=== PATIENT | male | born 1940 | race Caucasian/White ===

== ENCOUNTER → 2018-08-27 | Outpatient (CLI) | payer OTHER | LOC: FIMAGING 14:17 | PROVIDERS: ATTEND Orthopaedic Surgery | DX: Z01.818 Encounter for other preprocedural examination (principal); M16.11 Unilateral primary osteoarthritis, right hip ==

== ENCOUNTER 2018-09-19 05:33 | Inpatient (IN) | payer OTHER ==
[2018-09-19] MEDS ORDERED: TRANEXAMIC ACID 2,000 MG in NS 100 ML IV ONE (06:00)
[2018-09-19] MEDS ORDERED: TRANEXAMIC ACID 1,000 MG in NS 100 ML IV ONE (06:00)
[2018-09-19] MEDS ORDERED: POVIDONE-IODINE 20 ML in SODIUM CL IRRIG SOLUTION 500 ML IRR ONE (06:00)
[2018-09-19] MEDS ORDERED: ROPIVACAINE 0.2% 80 MG, EPINEPHrine 0.2 MG, KETOROLAC TROMETHAMINE 30 MG in SYRINGE 0 ML IU ONE (06:00)
[2018-09-19] MEDS ORDERED: FAMOTIDINE 20 MG TAB PO ONE (06:11)
[2018-09-19] MEDS ORDERED: ceFAZolin 2 GM/DEXTROSE 100 ML IV ONE (06:11)
[2018-09-19] MEDS ORDERED: ACETAMINOPHEN 325 MG TAB PO ONE (06:11)
[2018-09-19] MEDS ORDERED: DEXAMETHASONE 4 MG/ML VIAL IVP ONE (06:11)
[2018-09-19] MEDS ORDERED: LIDOCAINE 1% 2 ML INJ ID PRN (06:12)
[2018-09-19] MEDS ORDERED: LR 1,000 ML IV ONE (06:12)
[2018-09-19] MEDS ORDERED: BUPIVACAINE/EPI 0.5% 30 ML SDV ONE (06:49)
[2018-09-19 06:57] LABS: PLATELET COUNT 199 10^3/uL (150-400)
[2018-09-19] MEDS ORDERED: MIDAZOLAM 2 MG/2 ML VIAL IVP ONE (07:03)
--- NOTE | 2018-09-19 07:03 | PDANEPAE ---
ANE Past Medical History - Cardiovascular History Hx Hypertension: Yes Hx Arrhythmias: No Hx Chest Pain: No Hx Coronary Artery / Peripheral Vascular Disease: No Hx CHF / Valvular Disease: No Hx Palpitations: No Cardiovascular History Comment: PVC's - Pulmonary History Hx COPD: No Hx Asthma/Reactive Airway Disease: Yes Hx Recent Upper Respiratory Infection: No Hx Oxygen in Use at Home: No Hx Sleep Apnea: Yes Sleep Apnea Screening Result - Last Documented: Positive Pulmonary History Comment: exercise induced asthma - Neurologic History Hx Cerebrovascular Accident: No Hx Seizures: No Hx Dementia: No - Endocrine History Hx Diabetes: No Hypothyroid: No Hyperthyroid: No Obesity: yes, mild - Renal History Hx Renal Disorders: No - Liver History Hx Hepatic Disorders: No - Neurological & Psychiatric Hx Hx Neurological and Psychiatric Disorders: No - Cancer History Hx Cancer: Yes Cancer History Comment: basal cell skin cancer - Congenital Disorder History Hx Congenital Disorders: No - GI History GERD: no Hx Gastrointestinal Disorders: No - Other Health History Other Health History: cataracts. missing teeth upper - Chronic Pain History Chronic Pain: Yes (hands) - Surgical History Prior Surgeries: CARDIAC CATH 2017. KNEE SCOPE 2007. APPENDECTOMY 1945 ANE Review of Systems Review of Systems: - Exercise capacity Exercise capacity: limited by disability METS (RN): 4 METS ANE Patient History - Allergies Allergies/Adverse Reactions: etanercept [From Enbrel] Allergy (Verified 09/19/18 06:23) Anaphylaxis - Home Medications Home Medications: Acetamn/Diphenhydramine 500/25 [Tylenol PM (*)] 1 each PO HS 08/30/18 [Last Taken 09/17/18] Ergocalciferol [Vitamin D2 (*)] 50,000 unit PO Q14D 08/30/18 [Last Taken ] Hydrochlorothiazide [HCTZ (*)] 25 mg PO DAILY 08/30/18 [Last Taken 09/18/18 12: 00] Multivitamins [Multivitamin (*)] 1 each PO DAILY 08/30/18 [Last Taken 09/18/18 12:00] Quinapril HCl 40 mg PO DAILY 08/30/18 [Last Taken 09/18/18 12:00] Tamsulosin HCl [Flomax 0.4 MG (*)] 0.4 mg PO BID 08/30/18 [Last Taken 09/18/18 23:55] traMADol [Ultram 50 mg (*)] 50 mg PO Q4 PRN 08/30/18 [Last Taken 09/17/18] Xeljanz 09/05/18 [Last Taken 09/11/18] - NPO status NPO Since - Liquids (Date): 09/19/18 NPO Since - Liquids (Time): 01:00 NPO Since - Solids (Date): 09/18/18 NPO Since - Solids (Time): 21:00 - Anes Hx Anes Hx: no prior problems - Smoking Hx Smoking Status: Former smoker Marijuana use: No - Alcohol Use Alcohol Use: Occasionally - Family Anes Hx Family Anes Hx: neg - N/A Family Hx Anesthesia Complications: NONE ANE Labs/Vital Signs - Labs Result Diagrams: 09/19/18 06:45 09/19/18 06:45 - Vital Signs Blood Pressure: 137/71 Heart Rate: 86 Respiratory Rate: 16 O2 Sat (%): 92 Height: 185.42 cm Weight: 111.13 kg ANE Physical Exam - Airway Neck exam: decreased ROM Mallampati Score: Class 2 Mouth exam: normal dental/mouth exam - Pulmonary Pulmonary: no respiratory distress, no rales or rhonchi, clear to auscultation - Cardiovascular Cardiovascular: regular rate and rhythym, no murmur, rub, or gallop - ASA Status ASA Status: II ANE Anesthesia Plan Anesthesia Plan: MAC, spinal Total IV Anesthesia: No
[2018-09-19] MEDS ORDERED: MIDAZOLAM 2 MG/2 ML VIAL ONE (07:05)
--- NOTE | 2018-09-19 07:05 | PDHPUP ---
History & Physical Update H&P update statement: This history and physical update is based on an assessment of the patient which was completed after admission or registration (within 24 hours), but prior to the surgery/procedure. H&P update: H&P reviewed & patient examined, no change in patient's condition since H&P completed
[2018-09-19] MEDS ORDERED: METOCLOPRAMIDE 10 MG/2 ML VIAL ONE ×2 (07:09)
[2018-09-19] MEDS ORDERED: fentaNYL 100 MCG/2 ML INJ ONE (07:09)
[2018-09-19] MEDS ORDERED: PROPOFOL/EMULSION 500 MG/50 ML BOTTLE IV ONE ×2 (07:09→07:55)
[2018-09-19] MEDS ORDERED: LIDOCAINE 2% 2 ML INJ ONE ×2 (07:10)
[2018-09-19] MEDS ORDERED: BUPIVACAINE/DEXTROSE 7.5MG/ML 2 ML SPINAL AMP SP ONE (07:11)
[2018-09-19] MEDS ORDERED: ERGOCALCIFEROL 50,000 I.UNIT CAP PO SCH (07:15)
[2018-09-19] MEDS ORDERED: ROPIVACAINE 0.2% 80 MG, EPINEPHrine 0.2 MG in SYRINGE 0 ML IU ONE (07:30)
[2018-09-19] MEDS ORDERED: PHENYLEPHRINE HCL 100 MCG/ML SYR ONE ×2 (07:49→08:11)
[2018-09-19] MEDS ORDERED: ALBUTEROL 3 ML DEYVIAL IH PRN (08:06)
[2018-09-19] MEDS ORDERED: NS 500 ML IV PRN (08:06)
[2018-09-19] MEDS ORDERED: PHENYLEPHRINE HCL 100 MCG/ML SYR IVP PRN (08:06)
[2018-09-19] MEDS ORDERED: ONDANSETRON 4 MG/2 ML VIAL IVP PRN ×2 (08:06→10:09)
[2018-09-19] MEDS ORDERED: NALOXONE HCL 0.4 MG/ML INJ IVP PRN (08:06)
[2018-09-19] MEDS ORDERED: QUINAPRIL HCL 40 MG PO SCH (09:00)
[2018-09-19] MEDS ORDERED: METOCLOPRAMIDE 10 MG/2 ML VIAL IVP PRN (10:09)
[2018-09-19] MEDS ORDERED: oxyCODONE IR 5 MG TAB PO PRN (10:09)
[2018-09-19] MEDS ORDERED: PROMETHAZINE HCL 25 MG/ML INJ IVP PRN (10:09)
[2018-09-19] MEDS ORDERED: CYCLOBENZAPRINE 10 MG TAB PO PRN (10:09)
[2018-09-19] MEDS ORDERED: POLYETHYLENE GLYCOL 3350 17 GM PKT PO PRN (10:09)
[2018-09-19] MEDS ORDERED: MAGNESIUM HYDROXIDE 30 ML UDCUP PO PRN (10:09)
[2018-09-19] MEDS ORDERED: diphenhydrAMINE 25 MG CAP PO PRN (10:09)
[2018-09-19] MEDS ORDERED: LACTULOSE 20 GM/30 ML UDCUP PO PRN (10:09)
[2018-09-19] MEDS ORDERED: PROMETHAZINE HCL 25 MG SUPPR PR PRN (10:09)
[2018-09-19] MEDS ORDERED: BISACODYL 10 MG SUPP PR PRN (10:09)
[2018-09-19] MEDS ORDERED: TEMAZEPAM 15 MG CAP PO PRN (10:09)
[2018-09-19] MEDS ORDERED: ONDANSETRON DISINTEGRATING 4 MG TAB PO PRN (10:09)
[2018-09-19] MEDS ORDERED: DIPHENOXYLATE/ATROPINE LOMOTIL 1 TAB PO PRN (10:09)
[2018-09-19] MEDS ORDERED: LR 1,000 ML IV SCH (10:30)
--- NOTE | 2018-09-19 10:55 | POSTANESTH ---
Post Anesthetic Evaluation Cardiovascular Status: Normal, Stable Respiratory Status: Normal, Stable Level of Consciousness/Mental Status: Can Participate in Eval Pain Control: Adequate, Prn Tx Ordered Nausea/Vomiting Control: Adequate, Prn Tx Ordered Complications Possibly Related to Anesthesia: None Noted
[2018-09-19] MEDS: TAMSULOSIN HCL 0.4 MG CAP PO SCH ×2 (12:46→20:39)
[2018-09-19] MEDS: HYDROCHLOROTHIAZIDE 25 MG TAB PO SCH (12:46)
[2018-09-19] MEDS: MULTIVITAMINS 1 EACH TAB PO SCH (12:46)
[2018-09-19] MEDS ORDERED: NS 1,000 ML IV SCH (13:00)
--- NOTE | 2018-09-19 13:16 | POSTOPPROG ---
Post Op Note Date of Operation: 09/19/18 Surgeon: Denis Moya Blade Operator: Estelle BROWNE Anesthesiologist: Joanna Anesthesia: IV Sedation, Spinal Pre-op Diagnosis: Right hip OA Post-op Diagnosis: same Procedure: Right ant BONNIE with ED Inf/Abcess present in the surg proc area at time of surgery?: No EBL: 100-500 (300) Drains: Hemovac
[2018-09-19] MEDS: ceFAZolin 2 GM/DEXTROSE 100 ML IV SCH ×2 (14:42→22:04)
--- NOTE | 2018-09-19 14:50 | PDMN ---
Medical Necessity Medical necessity: Pt meets inpt criteria per MD order and [facility] [place] [facility], Hip Arthroplasty, MCR IP only list, A-2 days, 77 y/o w/R hip OA admitted for R ant BONNIE w/ED and post-op care.
[2018-09-19] MEDS: ACETAMINOPHEN 325 MG TAB PO SCH ×2 (15:07→22:05)
--- NOTE | 2018-09-19 18:37 | GOP ---
[f rep st] OPERATIVE REPORT DATE OF OPERATION: 09/19/2018 SURGEON: Denis Moya MD ROUSTABOUT CREW LEADER: Nick Mccabe, CSFA, LSA. Environmental Journalist was required for the procedure due to the complexity of the case, patient's condition for p ositioning, prepping, draping, retraction, and closure. ANESTHESIA: Spinal and IV sedation. PREOPERATIVE DIAGNOSIS: Right hip osteoarthritis. POSTOPERATIVE DIAGNOSIS: Right hip osteoarthritis. PROCEDURE PERFORMED: Right hip anterior approach hip replacement with MAKOplasty robotic guidance, f luoroscopic supervision greater than 1 hour. FINDINGS: SPECIMENS: Femoral head x1. ESTIMATED BLOOD LOSS: 300 cc. INDICATIONS: Patient has severe hip osteoarthritis that failed to improve with conservative measures significantly affecting activities of daily living including walking. The patient elected to procee d with anterior approach hip replacement using MAKOplasty robotic guidance. After extensive discussi on of all possible approaches as well as risks, benefits, pros, cons, expected recovery, and prognosi s, the patient verbalized understanding of the risks and benefits of the procedure, signed informed c onsent prior to the procedure. DESCRIPTION OF PROCEDURE: Patient was seen in the holding area. Operative consent and extremity wer e signed. The patient was taken the operating room. After smooth induction of spinal anesthesia and sedation, he was placed in supine position on the operating table with the arch table extension. Th e hip and contralateral iliac crest were prepped and draped in the usual sterile fashion. Operative site was confirmed by signature. Time-out performed. Allergies reviewed. Antibiotics and TXA were administered. Three pins were placed in the contralateral iliac crest and pelvic array was fixed. It was well visu alized by the robot. Desired incision for the anterior approach on the hip was infiltrated with 0.25 % Marcaine with epinephrine. Incision was made with a 10 blade and carried through subcutaneous tiss ues to identify the TFL fascia. This was incised in line with the incision and the TFL was retracted laterally. Lateral femoral circumflex vessels were coagulated with Aquamantys. The deep TFL fascia was incised in line with the vastus lateralis and the vastus lateralis was clearly exposed. The pre -capsular fat was excised. A T-shaped capsulotomy was performed. The capsule was preserved for late r closure. Femoral neck cut was then performed based on pre-templated calculations and imaging. The femoral hea d was excised with a corkscrew. The acetabulum was exposed in standard fashion. The labrum, pulvinar, and soft tissue were sharply e xcised. The pelvic checkpoint was then placed in the AIIS. Acetabular registration was performed us ing the robot. Reaming was then performed using the robot to the desired size. The cup was impacted into place again with robotic guidance system. Good fixation was achieved. The cup was irrigated a nd dried, and the liner was impacted into place, achieving good locking within the cup. The femur wa s then exposed in standard fashion. The femur was broached to desired size. The trial neck and head were attached. The hip was relocated. The position of all components was confirmed fluoroscopicall y. The foot was then externally rotated 90 degrees, extended the floor, and stability was confirmed. The hip was then dislocated and femoral trial components were removed and the stem was impacted in place. The trunnion was cleaned and dried, and the head was impacted down on the trunnion. The woun d was copiously irrigated including the cup with pulse lavage and the hip was once again relocated. Component placement was confirmed with fluoroscopy. All checkpoints were removed. The pelvic array was also removed. The wound was copiously irrigated with sterile solution. Dilute Betadine solution was then irrigated into the wound and allowed to soa k for 3 minutes before being irrigated out. Joint cocktail was injected in the soft tissues. The ca psule and indirect head of the rectus femoris were repaired with #1 Vicryl sutures. The drain was pl aced exiting distally and laterally from deep to TFL. The wound was then closed in layers with 0 Jet ll in the TFL fascia and deep subcutaneous fat and 3-0 Versalok in the dermis. The wound was then dr essed with sterile dressings. Patient was safely awakened and taken to the recovery room in stable c ondition. All critical portions of the procedure performed by myself, Dr. Moya. This operative note was create d by myself, and I was immediately available for emergency cross-coverage at all times. DRAINS: Hemovac x1. COMPLICATIONS: None. IMPLANTS: Includes a Rupesh Trident II Tritanium cluster hole acetabular shell size 60 with a 48 mm MDM liner Rupesh Accolade II size 8 stem, 127 degree offset with a 28 mm, +4 mm inner diameter MDM head and a 28 x 54 mm polyethylene outer head. /[id number]/MODL
[2018-09-19] MEDS: FAMOTIDINE 20 MG TAB PO SCH (20:37)
[2018-09-19] MEDS: ASPIRIN 81 MG CHEWABLE TAB PO SCH (20:38)
[2018-09-19] MEDS: SENNOSIDES/DOCUSATE SODIUM TAB PO SCH (20:38)
[2018-09-20] MEDS: ACETAMINOPHEN 325 MG TAB PO SCH ×2 (05:48→11:33)
[2018-09-20] MEDS: HYDROCHLOROTHIAZIDE 25 MG TAB PO SCH (07:56)
[2018-09-20] MEDS: FAMOTIDINE 20 MG TAB PO SCH (07:56)
[2018-09-20 07:59] VITALS: BP 127/74
[2018-09-20] MEDS: SENNOSIDES/DOCUSATE SODIUM TAB PO SCH (07:59)
[2018-09-20] MEDS: MULTIVITAMINS 1 EACH TAB PO SCH (07:59)
[2018-09-20] MEDS: TAMSULOSIN HCL 0.4 MG CAP PO SCH (07:59)
[2018-09-20] MEDS: ASPIRIN 81 MG CHEWABLE TAB PO SCH (07:59)
--- NOTE | 2018-09-20 08:00 | SOAPPROG ---
SOAP Progress Note Assessment/Plan: Assessment: Postop day 1 status post right anterior approach total hip arthroplasty with MAKOplasty robotic assistance Plan: Weight-bearing as tolerated with assistance, PT/OT DVT prophylaxis: SCDs, Tomas Hose, aspirin 81 mg twice daily Incentive spirometry 10 times per hour Analgesics: Celebrex oxycodone as needed, wean off narcotics as tolerated Disposition: Home today after physical therapy 09/20/18 07:57 Subjective: No acute events overnight. Pain very well controlled. Rates pain as 0 to 1/ 10. Participated with occupational therapy this morning in made walking laps on the jordan. Denies fevers chills nausea vomiting chest pain shortness of breath numbness or tingling Objective: Vital Signs Temp Pulse Resp BP Pulse Ox 36.5 C 80 16 128/89 H 95 09/20/18 03:42 09/20/18 03:42 09/20/18 03:42 09/20/18 03:42 09/20/18 03:42 Laboratory Results 09/20/18 05:16 09/20/18 05:16 09/19/18 09/20/18 09/21/18 05:59 05:59 05:59 Intake Total 1120 Output Total 1965 Balance -845 Awake alert and oriented x3 No acute distress Easy nonlabored breathing Right hip: Dressing clean dry intact no erythema drainage or signs of infection Drain discontinued, mild strike through a drain dressing Thigh and calf compartments soft compressible No calf pain Motor intact EHL FHL tibialis anterior gastrocsoleus Sensation intact to light touch L3-S1 Palpable DP PT pulses - Pending Discharge Pending Discharge Within 24 Hours: Yes Pending Discharge Date: 09/20/18 Pending Discharge Time: 11:00 ICD10 Worksheet Patient Problems: Problems Problem Status Onset Osteoarthritis of right hip Acute
[2018-09-20] MEDS ORDERED: OXYCODONE/APAP 5/325 TAB PO PRN (08:17)
--- NOTE | 2018-09-20 08:38 | PDIAF ---
- Diagnosis Diagnosis: Right hip osteoarthritis Code Status: Full Code - Medication Management Discharge Medications: electronically signed and located in the Home Medication List. - Orders Services needed: Home Care, Physical Therapy, Occupational Therapy Home Care Face to Face: I certify that this patient was under my care and that I had the required [id number] encounter meeting the encounter requirements on the discharge day. My findings support the fact that the patient is homebound as defined in Home Care Face to Face Continued: CMS Chapter 7 Medicare Benefits Manual 30.1.1 , The condition of the patient is such that there exists a normal inability to leave home and consequently, leaving home would require a considerable and taxing effort. Diet Recommendation: no restrictions on diet Diet Texture: Regular Texture Diet Additional Instructions: WBAT (weight bearing as tolerated), anterior total hip precautions Percocet given pre-operatively for pain Aspirin for VTE ppx (anticoagulant to prevent clots) Keep dressing clean, dry and intact Please see Dr. Moya's post-operative information sheet for more details - Follow Up Care Current Providers and Referrals: Denis Moya MD [Medical Doctor] - follow up in 2 weeks JOSIAH MELVIN [Primary Care Provider] -
--- NOTE | 2018-09-20 08:41 | PDDCSUM ---
Discharge Summary Discharge Summary: ADMISSION DIAGNOSIS: Right hip osteoarthritis DISCHARGE DIAGNOSIS: Right hip osteoarthritis OPERATION PERFORMED: September 19, 2018, Right total hip arthroplasty, anterior approach, MAKOplasty robotic assistance POSTOPERATIVE COMPLICATIONS: None CONDITION ON DISCHARGE: Improved HPI: The patient is a 77 year old male who has significant arthritis of his right hip. Clinical and radiographic features are consistent with this. Patient has failed attempts at conservative management, therefore, recommended operative right total hip replacement, anterior approach, MAKOplasty robotic assistance. DESCRIPTION OF HOSPITAL COURSE: The patient was admitted to the hospital on the morning of surgery and underwent a right total hip arthroplasty, anterior approach, MAKOplasty robotic assistance. Postoperatively, patient was treated with multimodal DVT prophylaxis, including aspirin 81 mg twice per day, SCDs and ROBINA hose. Patient was seen by PT and made good progress with ambulation and stairs. On the first post-operative day the patients H&H was 10.7/32.0. Patient was able to void spontaneously. At the time of discharge, patient was afebrile, wound was clean and dry. Patient is walking with a walker. DISPOSITION: The patient is discharged home and will have home health/PT. He may begin PT when he feels ready. Patient may progress to full weightbearing on the right lower extremity as tolerated. Aspirin 81 mg BID for 3 weeks. Patient has prescriptions for Celebrex and Percocet for pain control. He will hold his Xeljanz until he sees Dr. Moay. The patient will be seen by Dr. Mcgee office in approximately 2 weeks. If there are any problems, patient is to call Dr. Moya 's office.
[2018-09-20] MEDS ORDERED: QUINAPRIL HCL 40 MG PO SCH (09:00)
--- NOTE | 2018-09-20 09:32 | ASMTLACE ---
LACE Length of stay for Answers: 2 days current admission Acuity / Level of Answers: Yes Care: Did the patient have an inpatient admission? Comorbidities - select Answers: Opioid dependence all that apply / Chronic pain Other Notes: HTN; HLD # of Emergency department Answers: 0 visits in the last 6 months Score: 10 Date Signed: 09/20/2018 09:31 AM Electronically Signed By:SHAYNA Anna
--- NOTE | 2018-09-20 09:36 | ASMTCMCOM ---
CM Note CM Note Notes: Pt had planned OA of hip, resides alone. PT rec home care, pt agrees to home care. Pt chooses [facility], [facility] Pt address/phone verified. Pt has family support, dghtr flying in from [place] who will stay w pt over the next few days. Pt also has a dghtr local. Date Signed: 09/20/2018 09:35 AM Electronically Signed By:SHAYNA Anna
--- NOTE | 2018-09-20 13:57 | ASDISCHSUM ---
Discharge Information Plan Status:Home with Home Health Medically Cleared to Leave: Discharge Date:09/20/2018 12:27 PM CM D/C Disposition: ADT [facility] Discharge Date:09/20/2018 11:00 AM Transportation at D/C: Discharge Delay Reason: Follow-Up Date:09/20/2018 11:00 AM Discharge Slot: Final Diagnosis: Placement Information Referral Type:*Home Health Care Services Referral ID:[id number] Provider Name:[facility] Care Address 1:[address] Address 2: City:[place] Selection Factors: State:[place] Patient Contact Information Contact Name:WILLA Relationship:Son Address:[address] Work Phone: City:[place] Alternate Phone: State/Zip Code:[place] [address] Email: Financial Information Financial Class:Medicare Advantage Plans Primary Plan Desc:[facility] [employer] Primary Plan Number:[id number] Secondary Plan Desc: Secondary Plan Number: Assessment Information LACE LACE Length of stay for Answers: 2 days current admission Acuity / Level of Answers: Yes Care: Did the patient have an inpatient admission? Comorbidities - select Answers: Opioid dependence all that apply / Chronic pain Other Notes: HTN; HLD # of Emergency department Answers: 0 visits in the last 6 months Score: 10 Date Signed: 09/20/2018 09:31 AM Electronically Signed By:SHAYNA Anna [facility] CECEL[facility] Progress Note CM Note CM Note Notes: Pt had planned OA of hip, resides alone. PT rec home care, pt agrees to home care. Pt chooses [facility], [facility] Pt address/phone verified. Pt has family support, dghtr flying in from [place] who will stay w pt over the next few days. Pt also has a dghtr local. Date Signed: 09/20/2018 09:35 AM Electronically Signed By:SHAYNA Anna Intervention Information
== END 2018-09-20 12:27 | disposition home health service (06) | DRG 470 ==
LOC: F3N 05:33
PROVIDERS: ADMIT Orthopaedic Surgery; ATTEND Orthopaedic Surgery
DX: M16.11 Unilateral primary osteoarthritis, right hip (principal); I10 Essential (primary) hypertension; G47.33 Obstructive sleep apnea (adult) (pediatric); M06.9 Rheumatoid arthritis, unspecified; Z87.891 Personal history of nicotine dependence
CPT/HCPCS: 97116-GP; 97161-GP; 97165-GO; J0171; J0690; J1100; J1885; J2250; J2370; J2704; J2765; J2795; J3010